=== PATIENT | male | born 1955 | race Caucasian/White ===

== ENCOUNTER 2019-04-03 07:52 | Day surgery (SDC) | payer OTHER ==
[2019-04-03] MEDS ORDERED: PROPOFOL 40 ML (09:06)
[2019-04-03] MEDS ORDERED: LIDOCAINE 2% (SDV) 5 ML INJ (09:06)
[2019-04-03] MEDS ORDERED: FENTAnyl 50 MCG/ML VIAL IV (09:30)
[2019-04-03] MEDS ORDERED: ALBUTEROL 0.083% (NEB) 2.5 MG/3 ML AMP HHN (09:30)
[2019-04-03] MEDS ORDERED: ACETAMINOPHEN 500 MG TAB PO (09:30)
[2019-04-03] MEDS ORDERED: ONDANSETRON 4 MG INJ IV (09:30)
[2019-04-03] MEDS ORDERED: PROPOFOL 20 ML ×2 (10:50)
== END 2019-04-03 16:00 | disposition home or self-care (01) ==
LOC: GIL 07:52
DX: Z12.11 Encounter for screening for malignant neoplasm of colon (principal); K64.8 Other hemorrhoids; D12.5 Benign neoplasm of sigmoid colon; D12.3 Benign neoplasm of transverse colon; E11.9 Type 2 diabetes mellitus without complications; I10 Essential (primary) hypertension; E78.5 Hyperlipidemia, unspecified; E66.9 Obesity, unspecified; Z68.39 Body mass index [BMI] 39.0-39.9, adult
CPT/HCPCS: 45380; 82962; 88305